=== PATIENT | male | born 1965 | race Caucasian/White ===

== ENCOUNTER 2017-09-26 22:34 | Observation (INO) | payer OTHER ==
[~2017-09-26] VITALS: Ht 170.2 cm; Wt 78.0 kg
[~2017-09-26 22:34] MED LIST: AMLO5 PO; ASPI81CH PO; ATEN25 PO; Augmentin 500-1 EACH PO; BYSTOLIC PO; ERYT.5TO OD; ERYT.5TO RIGHTEYE; FISH1000 PO; HYDACE5 PO; LISI20 PO; LOSA50 PO; LOVA20 PO; LOVA40 PO; MECL25 PO; NAPR500 PO; OXYACE5T PO; PROM25 PO; Percocet 10-321 EACH PO; RXTRAM50 PO; TRAM50 PO; Vibramycin100 MG PO; Zofran Odt4 MG SL
[2017-09-26] MEDS ORDERED: LISI20 PO (22:51)
[2017-09-26] MEDS ORDERED: ASPI325 PO (22:51)
[2017-09-26 23:22] LABS: BASOPHILS ABSOLUTE AUTO 0.05 K/mm3 (0.00-0.23); BASOPHILS PERCENT AUTO 1 % (0-2); EOSINOPHILS ABSOLUTE AUTO 0.06 K/mm3 (0.00-0.68); EOSINOPHILS PERCENT AUTO 1 % (0-6); Hemoglobin 15.3 g/dL (13.5-17.5); IMMATURE GRAN ABSOLUTE AUTO 0.04 K/mm3 (0.00-0.10); IMMATURE GRAN PERCENT AUTO 1 % (0-1); LYMPHOCYTES ABSOLUTE AUTO 2.24 K/mm3 (0.84-5.20); LYMPHOCYTES PERCENT AUTO 28 % (21-46); MONOCYTES ABSOLUTE AUTO 0.62 K/mm3 (0.16-1.47); MONOCYTES PERCENT AUTO 8 % (4-13); Mean Corpuscular HGB Conc 33.3 g/dL (31.5-36.5); Mean Corpuscular Volume 87 fL (80-100); Mean Platelet Volume 10.4 fL (9.1-12.4); NEUTROPHILS ABSOLUTE AUTO 5.05 K/mm3 (1.96-9.15); NEUTROPHILS PERCENT AUTO 63 % (41-73); Platelet Count 262 K/mm3 (150-400); RDW Coefficient Variation 13.1 % (11.7-14.2); RDW Standard Deviation 41.6 fL (35.1-46.3); Red Blood Cell Count 5.28 M/mm3 (4.30-5.90); White Blood Cell Count 8.06 K/mm3 (4.00-11.30)
[2017-09-26 23:40] LABS: Alanine Aminotransfer (ALT/SGP 32 U/L (12-78); Albumin, Blood 3.5 g/dL (3.4-5.0); Albumin/Globulin Ratio 0.8 (0.8-1.8); Alk Phos 97 U/L (50-136); Anion Gap 9 mmol/L (6-16); Aspartate Aminotrans (AST/SGOT 28 U/L (12-37); Bilirubin, Total 0.2 mg/dL (0.1-1.0); Blood Urea Nitrogen 20 mg/dL (8-24); CO2, Blood 24 mmol/L (21-32); Calcium, Blood 8.7 mg/dL (8.5-10.1); Chloride, Blood 106 mmol/L (98-108); Creatinine, Blood 1.11 mg/dL (0.60-1.20); Globulin, Blood 4.3 g/dL (2.2-4.0); Glomerular Filtration Rate >60 (60-); Glucose, Blood 105 mg/dL (70-99); Sodium, Blood 139 mmol/L (136-145); Total Protein, Blood 7.8 g/dL (6.4-8.2)
[2017-09-28 05:21] LABS: BASOPHILS ABSOLUTE AUTO 0.05 K/mm3 (0.00-0.23); BASOPHILS PERCENT AUTO 1 % (0-2); EOSINOPHILS PERCENT AUTO 1 % (0-6); Hematocrit 49.6 % (37.0-53.0); Hemoglobin 16.9 g/dL (13.5-17.5); IMMATURE GRAN ABSOLUTE AUTO 0.02 K/mm3 (0.00-0.10); IMMATURE GRAN PERCENT AUTO 0 % (0-1); LYMPHOCYTES ABSOLUTE AUTO 1.87 K/mm3 (0.84-5.20); LYMPHOCYTES PERCENT AUTO 25 % (21-46); MONOCYTES ABSOLUTE AUTO 0.59 K/mm3 (0.16-1.47); MONOCYTES PERCENT AUTO 8 % (4-13); Mean Corpuscular HGB 29.6 pg (26.0-34.0); Mean Corpuscular HGB Conc 34.1 g/dL (31.5-36.5); Mean Corpuscular Volume 87 fL (80-100); Mean Platelet Volume 10.9 fL (9.1-12.4); NEUTROPHILS ABSOLUTE AUTO 4.98 K/mm3 (1.96-9.15); NEUTROPHILS PERCENT AUTO 65 % (41-73); Platelet Count 276 K/mm3 (150-400); RDW Coefficient Variation 13.2 % (11.7-14.2); RDW Standard Deviation 41.7 fL (35.1-46.3); Red Blood Cell Count 5.71 M/mm3 (4.30-5.90); White Blood Cell Count 7.61 K/mm3 (4.00-11.30)
[2017-09-28 05:59] LABS: Alanine Aminotransfer (ALT/SGP 37 U/L (12-78); Albumin, Blood 3.4 g/dL (3.4-5.0); Albumin/Globulin Ratio 0.7 (0.8-1.8); Alk Phos 100 U/L (50-136); Anion Gap 8 mmol/L (6-16); Aspartate Aminotrans (AST/SGOT 27 U/L (12-37); Bilirubin, Total 0.4 mg/dL (0.1-1.0); Blood Urea Nitrogen 20 mg/dL (8-24); Bun/Creatinine Ratio 20.5 (12.0-20.0); CO2, Blood 24 mmol/L (21-32); Calcium, Blood 9.1 mg/dL (8.5-10.1); Chloride, Blood 103 mmol/L (98-108); Creatinine, Blood 0.98 mg/dL (0.60-1.20); Globulin, Blood 4.8 g/dL (2.2-4.0); Glomerular Filtration Rate >60 (60-); Glucose, Blood 111 mg/dL (70-99); Sodium, Blood 135 mmol/L (136-145); Total Protein, Blood 8.2 g/dL (6.4-8.2)
[2017-09-29 05:49] LABS: Anion Gap 7 mmol/L (6-16); Blood Urea Nitrogen 26 mg/dL (8-24); CO2, Blood 23 mmol/L (21-32); Calcium, Blood 9.4 mg/dL (8.5-10.1); Chloride, Blood 106 mmol/L (98-108); Creatinine, Blood 1.04 mg/dL (0.60-1.20); Glomerular Filtration Rate >60 (60-); Glucose, Blood 108 mg/dL (70-99); Potassium, Blood 4.1 mmol/L (3.5-5.5); Sodium, Blood 136 mmol/L (136-145)
[2017-09-29] MEDS ORDERED: ASPI81CH PO (13:30)
[2017-09-29] MEDS ORDERED: ATOR40TA PO (13:30)
[2017-09-29] MEDS ORDERED: CLOP75 PO (13:31)
[2017-09-29] MEDS ORDERED: CLON.1 PO (13:31)
[2017-09-29] MEDS ORDERED: LOSA50 PO (13:32)
== END 2017-09-29 13:50 | disposition home or self-care (01) ==
LOC: ER 22:34 → ICUW 22:35 → MEDS 09-28 14:21
PROVIDERS: Emergency Medicine; Internal Medicine
DX: G45.9 Transient cerebral ischemic attack, unspecified (principal); I16.1 Hypertensive emergency; I10 Essential (primary) hypertension; F17.220 Nicotine dependence, chewing tobacco, uncomplicated; Z86.19 Personal history of other infectious and parasitic diseases; Z88.8 Allergy status to other drugs, medicaments and biological substances; Z79.82 Long term (current) use of aspirin; Z79.899 Other long term (current) drug therapy; Z86.73 Personal history of transient ischemic attack (TIA), and cerebral infarction without residual deficits; Z98.890 Other specified postprocedural states; Z23 Encounter for immunization
CPT/HCPCS: 36415; 70450; 70551; 80048; 80053; 82947; 84443; 85025; 87081; 92523; 93306; 93880; 96365; 96372; 96375; 96376; 97161; 97166; 97530; 99285; G0008; G0378; G8978; G8979; G8980; G8987; G8988; G8999; G9158; G9186; J0360; J1170; J1650; J2405; J3010; J7050; Q2038

== ENCOUNTER 2017-10-02 09:36 | Emergency (ER) | payer OTHER ==
[~2017-10-02] VITALS: Ht 170.2 cm; Wt 78.0 kg
[~2017-10-02 09:36] MED LIST changes: +ASPI325 PO; +ATOR40TA PO; +CLON.1 PO; +CLOP75 PO
[2017-10-02 10:37] LABS: BASOPHILS ABSOLUTE AUTO 0.05 K/mm3 (0.00-0.23); BASOPHILS PERCENT AUTO 1 % (0-2); EOSINOPHILS ABSOLUTE AUTO 0.12 K/mm3 (0.00-0.68); EOSINOPHILS PERCENT AUTO 2 % (0-6); Hematocrit 45.2 % (37.0-53.0); Hemoglobin 15.1 g/dL (13.5-17.5); IMMATURE GRAN ABSOLUTE AUTO 0.02 K/mm3 (0.00-0.10); IMMATURE GRAN PERCENT AUTO 0 % (0-1); LYMPHOCYTES ABSOLUTE AUTO 1.65 K/mm3 (0.84-5.20); LYMPHOCYTES PERCENT AUTO 26 % (21-46); MONOCYTES ABSOLUTE AUTO 0.58 K/mm3 (0.16-1.47); MONOCYTES PERCENT AUTO 9 % (4-13); Mean Corpuscular HGB 29.2 pg (26.0-34.0); Mean Corpuscular HGB Conc 33.4 g/dL (31.5-36.5); Mean Corpuscular Volume 87 fL (80-100); Mean Platelet Volume 10.4 fL (9.1-12.4); NEUTROPHILS ABSOLUTE AUTO 3.99 K/mm3 (1.96-9.15); NEUTROPHILS PERCENT AUTO 62 % (41-73); Platelet Count 238 K/mm3 (150-400); RDW Coefficient Variation 12.9 % (11.7-14.2); RDW Standard Deviation 41.1 fL (35.1-46.3); Red Blood Cell Count 5.18 M/mm3 (4.30-5.90); White Blood Cell Count 6.41 K/mm3 (4.00-11.30)
[2017-10-02 10:53] LABS: Alanine Aminotransfer (ALT/SGP 37 U/L (12-78); Albumin, Blood 3.5 g/dL (3.4-5.0); Albumin/Globulin Ratio 0.8 (0.8-1.8); Alk Phos 97 U/L (50-136); Anion Gap 8 mmol/L (6-16); Aspartate Aminotrans (AST/SGOT 29 U/L (12-37); Bilirubin, Total 0.4 mg/dL (0.1-1.0); Blood Urea Nitrogen 21 mg/dL (8-24); CO2, Blood 25 mmol/L (21-32); Calcium, Blood 8.5 mg/dL (8.5-10.1); Chloride, Blood 106 mmol/L (98-108); Creatinine, Blood 0.96 mg/dL (0.60-1.20); Globulin, Blood 4.2 g/dL (2.2-4.0); Glomerular Filtration Rate >60 (60-); Glucose, Blood 104 mg/dL (70-99); Sodium, Blood 139 mmol/L (136-145); Total Protein, Blood 7.7 g/dL (6.4-8.2)
== END 2017-10-02 12:10 | disposition home or self-care (01) ==
LOC: ER 09:36
PROVIDERS: Emergency Medicine
DX: R51 Headache (principal); I10 Essential (primary) hypertension; F17.220 Nicotine dependence, chewing tobacco, uncomplicated; Z88.1 Allergy status to other antibiotic agents; Z79.82 Long term (current) use of aspirin; Z79.899 Other long term (current) drug therapy; Z79.02 Long term (current) use of antithrombotics/antiplatelets; Z87.442 Personal history of urinary calculi
CPT/HCPCS: 36415; 70450; 80053; 85025; 85730; 93005; 93010; 96374; 96375; 99284; J1200; J2765

== ENCOUNTER 2017-10-14 13:03 | Emergency (ER) | payer OTHER ==
[~2017-10-14] VITALS: Ht 170.2 cm; Wt 81.7 kg
== END 2017-10-14 13:57 | disposition home or self-care (01) ==
LOC: ER 13:03
DX: T15.01XA Foreign body in cornea, right eye, initial encounter (principal); I10 Essential (primary) hypertension; E78.00 Pure hypercholesterolemia, unspecified; I25.10 Atherosclerotic heart disease of native coronary artery without angina pectoris; Z86.73 Personal history of transient ischemic attack (TIA), and cerebral infarction without residual deficits; Z88.1 Allergy status to other antibiotic agents; Z79.82 Long term (current) use of aspirin; Z79.899 Other long term (current) drug therapy; W45.8XXA Other foreign body or object entering through skin, initial encounter
CPT/HCPCS: 90471; 90714; 99283

== ENCOUNTER 2018-11-04 17:32 | Emergency (ER) | payer OTHER ==
[~2018-11-04] VITALS: Ht 170.2 cm; Wt 81.7 kg
[2018-11-04] MEDS ORDERED: CLON.3 PO (18:48)
[2018-11-04] MEDS ORDERED: NEBI5 PO (18:48)
== END 2018-11-04 18:49 | disposition home or self-care (01) ==
LOC: ER 17:32
DX: S61.412A Laceration without foreign body of left hand, initial encounter (principal); I10 Essential (primary) hypertension; F17.210 Nicotine dependence, cigarettes, uncomplicated; Z88.8 Allergy status to other drugs, medicaments and biological substances; Z79.82 Long term (current) use of aspirin; Z79.899 Other long term (current) drug therapy; Z87.442 Personal history of urinary calculi; W26.0XXA Contact with knife, initial encounter

== ENCOUNTER 2018-11-11 19:30 | Emergency (ER) | payer OTHER ==
[~2018-11-11] VITALS: Ht 170.2 cm; Wt 81.7 kg
[~2018-11-11 19:30] MED LIST changes: +CLON.3 PO; +NEBI5 PO
[2018-11-11] MEDS ORDERED: PANT20 PO (20:14)
[2018-11-11 20:19] LABS: BASOPHILS ABSOLUTE AUTO 0.03 K/mm3 (0.00-0.23); BASOPHILS PERCENT AUTO 0 % (0-2); EOSINOPHILS ABSOLUTE AUTO 0.09 K/mm3 (0.00-0.68); EOSINOPHILS PERCENT AUTO 1 % (0-6); Hematocrit 41.3 % (37.0-53.0); Hemoglobin 14.2 g/dL (13.5-17.5); IMMATURE GRAN ABSOLUTE AUTO 0.04 K/mm3 (0.00-0.10); IMMATURE GRAN PERCENT AUTO 1 % (0-1); LYMPHOCYTES ABSOLUTE AUTO 1.93 K/mm3 (0.84-5.20); LYMPHOCYTES PERCENT AUTO 27 % (21-46); MONOCYTES ABSOLUTE AUTO 0.47 K/mm3 (0.16-1.47); MONOCYTES PERCENT AUTO 7 % (4-13); Mean Corpuscular HGB 31.1 pg (26.0-34.0); Mean Corpuscular HGB Conc 34.4 g/dL (31.5-36.5); Mean Corpuscular Volume 90 fL (80-100); Mean Platelet Volume 10.6 fL (9.1-12.4); NEUTROPHILS PERCENT AUTO 64 % (41-73); Platelet Count 211 K/mm3 (150-400); RDW Coefficient Variation 12.7 % (11.7-14.2); RDW Standard Deviation 41.6 fL (35.1-46.3); Red Blood Cell Count 4.57 M/mm3 (4.30-5.90); White Blood Cell Count 7.06 K/mm3 (4.00-11.30)
[2018-11-11 20:35] LABS: Alanine Aminotransfer (ALT/SGP 39 U/L (12-78); Albumin, Blood 3.6 g/dL (3.4-5.0); Alk Phos 74 U/L (50-136); Anion Gap 7 mmol/L (6-16); Aspartate Aminotrans (AST/SGOT 41 U/L (12-37); Bilirubin, Total 0.3 mg/dL (0.1-1.0); Blood Urea Nitrogen 17 mg/dL (8-24); Bun/Creatinine Ratio 13.4 (12.0-20.0); CO2, Blood 29 mmol/L (21-32); Calcium, Blood 9.3 mg/dL (8.5-10.1); Chloride, Blood 107 mmol/L (98-108); Creatinine, Blood 1.27 mg/dL (0.60-1.20); Globulin, Blood 3.5 g/dL (2.2-4.0); Glomerular Filtration Rate >60 (60-); Glucose, Blood 105 mg/dL (70-99); Potassium, Blood 4.2 mmol/L (3.5-5.5); Sodium, Blood 143 mmol/L (136-145); Total Protein, Blood 7.1 g/dL (6.4-8.2)
[2018-11-11 20:48] LABS: International Normalized Ratio 0.99; Prothrombin Time Results 10.5 Sec (9.7-11.5)
== END 2018-11-12 00:03 | disposition home or self-care (01) ==
LOC: ER 19:30
PROVIDERS: Emergency Medicine
DX: R20.2 Paresthesia of skin (principal); I10 Essential (primary) hypertension; Z86.73 Personal history of transient ischemic attack (TIA), and cerebral infarction without residual deficits; Z88.1 Allergy status to other antibiotic agents; Z79.899 Other long term (current) drug therapy; F17.210 Nicotine dependence, cigarettes, uncomplicated
CPT/HCPCS: 36415; 70450; 70496; 70498; 80053; 82947; 85025; 85610; 85730; 93005; 93010; 99284-25; Q9967

== ENCOUNTER 2019-10-24 18:01 | Emergency (ER) | payer BC ==
[~2019-10-24] VITALS: Ht 172.7 cm; Wt 77.1 kg
[~2019-10-24 18:01] MED LIST changes: +PANT20 PO
[2019-10-24 18:18] LABS: BASOPHILS ABSOLUTE AUTO 0.04 K/mm3 (0.00-0.23); BASOPHILS PERCENT AUTO 0 % (0-2); EOSINOPHILS ABSOLUTE AUTO 0.12 K/mm3 (0.00-0.68); EOSINOPHILS PERCENT AUTO 1 % (0-6); Hematocrit 39.6 % (37.0-53.0); Hemoglobin 12.9 g/dL (13.5-17.5); IMMATURE GRAN ABSOLUTE AUTO 0.06 K/mm3 (0.00-0.10); IMMATURE GRAN PERCENT AUTO 1 % (0-1); LYMPHOCYTES ABSOLUTE AUTO 2.68 K/mm3 (0.84-5.20); LYMPHOCYTES PERCENT AUTO 28 % (21-46); MONOCYTES PERCENT AUTO 7 % (4-13); Mean Corpuscular HGB 29.9 pg (26.0-34.0); Mean Corpuscular HGB Conc 32.6 g/dL (31.5-36.5); Mean Corpuscular Volume 92 fL (80-100); NEUTROPHILS ABSOLUTE AUTO 5.84 K/mm3 (1.96-9.15); NEUTROPHILS PERCENT AUTO 62 % (41-73); Platelet Count 248 K/mm3 (150-400); RDW Coefficient Variation 12.6 % (11.7-14.2); RDW Standard Deviation 42.6 fL (35.1-46.3); Red Blood Cell Count 4.31 M/mm3 (4.30-5.90); White Blood Cell Count 9.44 K/mm3 (4.00-11.30)
[2019-10-24 18:47] LABS: Salicylate <1.7 mg/dL (2.8-20.0); Troponin I <0.015 ng/mL (0.000-0.040)
[2019-10-24 18:49] LABS: Alanine Aminotransfer (ALT/SGP 20 U/L (12-78); Albumin/Globulin Ratio 0.7 (0.8-1.8); Alk Phos 71 U/L (50-136); Anion Gap 8 mmol/L (6-16); Aspartate Aminotrans (AST/SGOT 21 U/L (12-37); Bilirubin, Total 0.2 mg/dL (0.1-1.0); Blood Urea Nitrogen 24 mg/dL (8-24); Bun/Creatinine Ratio 21.6 (12.0-20.0); CO2, Blood 23 mmol/L (21-32); Calcium, Blood 8.3 mg/dL (8.5-10.1); Chloride, Blood 106 mmol/L (98-108); Creatinine, Blood 1.11 mg/dL (0.60-1.20); Globulin, Blood 4.1 g/dL (2.2-4.0); Glomerular Filtration Rate >60 (60-); Glucose, Blood 131 mg/dL (70-99); Potassium, Blood 3.2 mmol/L (3.5-5.5); Sodium, Blood 137 mmol/L (136-145); Total Protein, Blood 7.1 g/dL (6.4-8.2)
[2019-10-24 19:00] LABS: Acetaminophen, Random <2.0 ug/mL (10.0-30.0)
[2019-10-24 20:17] LABS: U Amphetamine Screen DETECTED; U Barbituate Screen Not Detected; U Benzodiazapine Screen Not Detected; U Buprenorphine Screen Not Detected; U Cannabinoids Screen Not Detected; U Cocaine Screen Not Detected; U Methadone Screen Not Detected; U Methamphetamine Screen Not Detected; U Opiates Screen Not Detected; U Oxycodone Screen Not Detected; U Phencyclidine Screen Not Detected; U Propoxyphene Screen Not Detected
== END 2019-10-24 20:31 | disposition home or self-care (01) ==
LOC: ER 18:01
PROVIDERS: Emergency Medicine
DX: R55 Syncope and collapse (principal); F10.129 Alcohol abuse with intoxication, unspecified; F15.90 Other stimulant use, unspecified, uncomplicated; I10 Essential (primary) hypertension; F17.200 Nicotine dependence, unspecified, uncomplicated; Z88.1 Allergy status to other antibiotic agents; Z79.899 Other long term (current) drug therapy; Z86.73 Personal history of transient ischemic attack (TIA), and cerebral infarction without residual deficits
CPT/HCPCS: 70450; 80053; 82947; 84484; 85025; 93005; 93010; 96360; 99285-25; G0480; J7030

== ENCOUNTER 2019-11-22 07:23 | Emergency (ER) | payer BC, OTHER ==
[~2019-11-22] VITALS: Ht 170.2 cm; Wt 81.7 kg
[2019-11-22] MEDS ORDERED: PANTOPRAZOLE SO40 M2 PO (07:53)
== END 2019-11-22 08:54 | disposition home or self-care (01) ==
LOC: ER 07:23
DX: J06.9 Acute upper respiratory infection, unspecified (principal); I10 Essential (primary) hypertension; F17.210 Nicotine dependence, cigarettes, uncomplicated; F17.220 Nicotine dependence, chewing tobacco, uncomplicated; Z88.1 Allergy status to other antibiotic agents; Z79.899 Other long term (current) drug therapy; Z79.02 Long term (current) use of antithrombotics/antiplatelets; Z86.73 Personal history of transient ischemic attack (TIA), and cerebral infarction without residual deficits
CPT/HCPCS: 71045; 99283-25; J1100

== ENCOUNTER 2021-06-10 08:10 | Day surgery (SDC) | payer BC ==
[~2021-06-10] VITALS: Ht 170.2 cm; Wt 85.3 kg
[~2021-06-10 08:10] MED LIST changes: +PANTOPRAZOLE SO40 M2 PO
[2021-06-10] MEDS ORDERED: METO25ER (08:44)
== END 2021-06-10 10:34 | disposition home or self-care (01) ==
LOC: ORSCSDS 08:10
PROVIDERS: Internal Medicine Gastroenterology
PROC: 0DB98ZX Excision of Duodenum, Via Natural or Artificial Opening Endoscopic, Diagnostic (ICD-10-PCS; principal; 2021-06-10 10:00)
PROC: 0DB78ZX Excision of Stomach, Pylorus, Via Natural or Artificial Opening Endoscopic, Diagnostic (ICD-10-PCS; principal; 2021-06-10 10:00)
DX: R10.11 Right upper quadrant pain (principal); K21.9 Gastro-esophageal reflux disease without esophagitis; F17.210 Nicotine dependence, cigarettes, uncomplicated; I10 Essential (primary) hypertension; B19.20 Unspecified viral hepatitis C without hepatic coma; K44.9 Diaphragmatic hernia without obstruction or gangrene; Z79.899 Other long term (current) drug therapy
CPT/HCPCS: 88305; J2704; J7120

== ENCOUNTER 2021-09-01 08:26 | Day surgery (SDC) | payer BC ==
[~2021-09-01] VITALS: Ht 170.2 cm; Wt 83.5 kg
[~2021-09-01 08:26] MED LIST changes: +Aspir 8181 MG PO; +Isosorbide Mono30 MG PO; +METO25ER PO; +NITR.4SL SL; +PANTOPRAZOLE SO20 M1 PO
--- NOTE | 2021-09-01 09:06 | NUR ---
History, Chart, Medications and Allergies reviewed before start of procedure. Patient confirms NPO status and agrees with scheduled surgery. Reports taking all of colon prep with clear results. Ride home arranged with his significant other, Chuyita.
--- NOTE | 2021-09-01 10:28 | NUR ---
09/01/21 1028 Chelsey Holman HISTORY,CHART, MEDICATIONS AND ALLERGIES REVIEWED BEFORE START OF PROCEDURE. PATIENT CONFIRMS NPO STATUS AND AGREES WITH SCHEDULED PROCEDURE. 3-LEAD EKG REVIEWED WITH PHYSICIAN PRIOR TO START OF PROCEDURE. MONITOR INTACT WITH CONTINUOUS PULSE OXIMETRY AND INTERMITTENT BP. SUPPLEMENTAL O2 TO BE TITRATED THROUGHOUT PROCEDURE TO MAINTAIN O2 SATURATION ABOVE 90%. PATIENT DETERMINED TO BE ASA APPROPRIATE FOR MODERATE SEDATION PRIOR TO START OF PROCEDURE BY DR. RUIZ.
--- NOTE | 2021-09-01 11:54 | NUR ---
PT SITTING UP EATING CRACKERS, PUDDING AND DRINKING COFFEE.
--- NOTE | 2021-09-01 11:55 | NUR ---
DR. RUIZ AT BEDSIDE CONSULTING WITH PT.
--- NOTE | 2021-09-01 12:22 | NUR ---
Patient up to Ambulate independently. Gait steady. Discharge instructions reviewed with patient. Patient verbalizes understanding. Copy given to patient to take home. Discharged via wheelchair to private car for ride home.
== END 2021-09-01 22:40 | disposition home or self-care (01) ==
LOC: ORSCMMR 08:26 → ORSCSDS 09:45 → ORD 09:45 → ORSCMMR 09:45
PROVIDERS: Internal Medicine Gastroenterology
PROC: 0DBP8ZX Excision of Rectum, Via Natural or Artificial Opening Endoscopic, Diagnostic (ICD-10-PCS; principal; 2021-09-01 09:45)
PROC: 0DBM8ZX Excision of Descending Colon, Via Natural or Artificial Opening Endoscopic, Diagnostic (ICD-10-PCS; principal; 2021-09-01 09:45)
PROC: 0DBN8ZX Excision of Sigmoid Colon, Via Natural or Artificial Opening Endoscopic, Diagnostic (ICD-10-PCS; principal; 2021-09-01 09:45)
PROC: 0DBL8ZX Excision of Transverse Colon, Via Natural or Artificial Opening Endoscopic, Diagnostic (ICD-10-PCS; principal; 2021-09-01 09:45)
DX: R10.9 Unspecified abdominal pain (principal); D12.3 Benign neoplasm of transverse colon; D12.4 Benign neoplasm of descending colon; D12.5 Benign neoplasm of sigmoid colon; D12.8 Benign neoplasm of rectum; K57.30 Diverticulosis of large intestine without perforation or abscess without bleeding; K64.4 Residual hemorrhoidal skin tags; K62.5 Hemorrhage of anus and rectum; K21.9 Gastro-esophageal reflux disease without esophagitis; B18.2 Chronic viral hepatitis C; Z86.73 Personal history of transient ischemic attack (TIA), and cerebral infarction without residual deficits; Z79.01 Long term (current) use of anticoagulants; Z79.82 Long term (current) use of aspirin; Z79.899 Other long term (current) drug therapy; Z87.891 Personal history of nicotine dependence
CPT/HCPCS: 88305; J2250; J3010; J7120

== ENCOUNTER 2022-10-18 11:48 | Inpatient (IN) | payer BC ==
[~2022-10-18] VITALS: Ht 167.6 cm; Wt 87.0 kg
[2022-10-18 12:58] LABS: BASOPHILS ABSOLUTE AUTO 0.07 K/mm3 (0.00-0.23); BASOPHILS PERCENT AUTO 0 % (0-2); EOSINOPHILS ABSOLUTE AUTO 0.04 K/mm3 (0.00-0.68); EOSINOPHILS PERCENT AUTO 0 % (0-6); Hematocrit 46.5 % (37.0-53.0); Hemoglobin 15.2 g/dL (13.5-17.5); IMMATURE GRAN ABSOLUTE AUTO 0.12 K/mm3 (0.00-0.10); IMMATURE GRAN PERCENT AUTO 1 % (0-1); LYMPHOCYTES ABSOLUTE AUTO 1.32 K/mm3 (0.84-5.20); LYMPHOCYTES PERCENT AUTO 7 % (21-46); MONOCYTES ABSOLUTE AUTO 1.23 K/mm3 (0.16-1.47); MONOCYTES PERCENT AUTO 6 % (4-13); Mean Corpuscular HGB 30.8 pg (26.0-34.0); Mean Corpuscular HGB Conc 32.7 g/dL (31.5-36.5); Mean Corpuscular Volume 94 fL (80-100); Mean Platelet Volume 11.4 fL (9.1-12.4); NEUTROPHILS ABSOLUTE AUTO 16.34 K/mm3 (1.96-9.15); NEUTROPHILS PERCENT AUTO 86 % (41-73); Platelet Count 187 K/mm3 (150-400); RDW Coefficient Variation 14.1 % (11.7-14.2); Red Blood Cell Count 4.93 M/mm3 (4.30-5.90); White Blood Cell Count 19.12 K/mm3 (4.00-11.30)
[2022-10-18 13:11] LABS: Albumin, Blood 3.5 g/dL (3.4-5.0); Albumin/Globulin Ratio 0.8 (0.8-1.8); Bilirubin, Total 0.5 mg/dL (0.1-1.0); Bun/Creatinine Ratio 15.7 (12.0-20.0); Calcium, Blood 9.3 mg/dL (8.5-10.1); Creatinine, Blood 1.02 mg/dL (0.60-1.20); Globulin, Blood 4.4 g/dL (2.2-4.0); Potassium, Blood 3.4 mmol/L (3.5-5.5); Total Protein, Blood 7.9 g/dL (6.4-8.2)
[2022-10-18] MEDS ORDERED: BUMETANIDE2 M6 PO (15:23)
[2022-10-18] MEDS ORDERED: KLOR-CON 1010 ME9 PO (15:23)
[2022-10-18] MEDS ORDERED: Imdur-ER60 MG PO (15:24)
--- NOTE | 2022-10-18 17:48 | NUR ---
SHIFT SUMMARY PT ARRIVED FROM THE ED THIS AFTERNOON WITH CELLULITIS OF THE R ELBOW/ARM AREA. HE IS AOX4 AND INDEPENDENT IN THE ROOM. HE CAN MAKE HIS NEEDS KNOWN. HE HAD NOT TAKEN HIS HOME BP MEDS TODAY, DR. MEJIA STARTED THEM AND THEY WERE ADMINISTERED SHORTLY AFTER HIS ARRIVAL TO THE FLOOR. HE WAS HYPERTENSIVE UPON ARRIVAL. ALL ADMIT DOCUMENTATION WAS COMPLETED. WILL REPORT TO ONCOMING NURSE.
--- NOTE | 2022-10-19 04:16 | NUR ---
SHIFT SUMMARY PT WAS SLEEPING VERY SOUNDLY AT BEGINNING OF SHIFT, BUT AWOKE TO VOICE AND TOUCH. A&OX4. INDEPENDENT IN ROOM. VANCOMYCIN FOR DX OF CELLULITIS TO R ARM GIVEN PER EMAR. PT HAS BEEN SLEEPING IN BETWEEN STAFF VISITS TO ROOM. MEDICATED FOR PAIN PER EMAR ONCE SO FAR THIS SHIFT. ABLE TO MAKE NEEDS KNOWN. CALL LIGHT IN REACH. WILL CONTINUE TO MONITOR AND PROVIDE CARE T/O SHIFT.
[2022-10-19 05:12] LABS: BASOPHILS ABSOLUTE AUTO 0.05 K/mm3 (0.00-0.23); BASOPHILS PERCENT AUTO 0 % (0-2); EOSINOPHILS ABSOLUTE AUTO 0.09 K/mm3 (0.00-0.68); EOSINOPHILS PERCENT AUTO 1 % (0-6); Hematocrit 41.7 % (37.0-53.0); Hemoglobin 13.7 g/dL (13.5-17.5); IMMATURE GRAN ABSOLUTE AUTO 0.14 K/mm3 (0.00-0.10); IMMATURE GRAN PERCENT AUTO 1 % (0-1); LYMPHOCYTES ABSOLUTE AUTO 1.82 K/mm3 (0.84-5.20); LYMPHOCYTES PERCENT AUTO 10 % (21-46); MONOCYTES ABSOLUTE AUTO 1.18 K/mm3 (0.16-1.47); MONOCYTES PERCENT AUTO 7 % (4-13); Mean Corpuscular HGB 30.7 pg (26.0-34.0); Mean Corpuscular HGB Conc 32.9 g/dL (31.5-36.5); Mean Corpuscular Volume 94 fL (80-100); NEUTROPHILS ABSOLUTE AUTO 14.14 K/mm3 (1.96-9.15); NEUTROPHILS PERCENT AUTO 81 % (41-73); Platelet Count 182 K/mm3 (150-400); RDW Standard Deviation 47.8 fL (35.1-46.3); Red Blood Cell Count 4.46 M/mm3 (4.30-5.90); White Blood Cell Count 17.42 K/mm3 (4.00-11.30)
[2022-10-19 06:29] LABS: Albumin, Blood 2.8 g/dL (3.4-5.0); Albumin/Globulin Ratio 0.7 (0.8-1.8); Bilirubin, Total 0.4 mg/dL (0.1-1.0); Bun/Creatinine Ratio 18.3 (12.0-20.0); Calcium, Blood 8.5 mg/dL (8.5-10.1); Creatinine, Blood 1.04 mg/dL (0.60-1.20); Globulin, Blood 3.9 g/dL (2.2-4.0); Potassium, Blood 3.5 mmol/L (3.5-5.5); Total Protein, Blood 6.7 g/dL (6.4-8.2)
--- NOTE | 2022-10-19 10:39 | NUR ---
ct called, need with contrast for this pic. verified with dr rosario andrea. she agrees okay
--- NOTE | 2022-10-19 16:57 | NUR ---
pt pleasant today. no c/o [place] for me. continues on abx. did have c/t with contrast today of arm. dr started on n/s to flush kidneys. no new concerns noted. pending results of ct. pt continues to be independant in room. bed in low position, call lite in reach, calls aprop
[2022-10-20 03:21] LABS: BASOPHILS ABSOLUTE AUTO 0.06 K/mm3 (0.00-0.23); BASOPHILS PERCENT AUTO 0 % (0-2); EOSINOPHILS ABSOLUTE AUTO 0.16 K/mm3 (0.00-0.68); EOSINOPHILS PERCENT AUTO 1 % (0-6); Hematocrit 39.3 % (37.0-53.0); Hemoglobin 13.2 g/dL (13.5-17.5); IMMATURE GRAN ABSOLUTE AUTO 0.16 K/mm3 (0.00-0.10); IMMATURE GRAN PERCENT AUTO 1 % (0-1); LYMPHOCYTES ABSOLUTE AUTO 1.79 K/mm3 (0.84-5.20); LYMPHOCYTES PERCENT AUTO 11 % (21-46); MONOCYTES ABSOLUTE AUTO 1.14 K/mm3 (0.16-1.47); MONOCYTES PERCENT AUTO 7 % (4-13); Mean Corpuscular HGB 30.9 pg (26.0-34.0); Mean Corpuscular HGB Conc 33.6 g/dL (31.5-36.5); Mean Corpuscular Volume 92 fL (80-100); Mean Platelet Volume 11.1 fL (9.1-12.4); NEUTROPHILS ABSOLUTE AUTO 13.15 K/mm3 (1.96-9.15); NEUTROPHILS PERCENT AUTO 80 % (41-73); Platelet Count 186 K/mm3 (150-400); RDW Coefficient Variation 13.7 % (11.7-14.2); RDW Standard Deviation 46.7 fL (35.1-46.3); Red Blood Cell Count 4.27 M/mm3 (4.30-5.90); White Blood Cell Count 16.46 K/mm3 (4.00-11.30)
[2022-10-20 03:52] LABS: Vancomycin, Trough 9.9 ug/mL (5.0-10.0)
[2022-10-20 04:04] LABS: Bun/Creatinine Ratio 21.6 (12.0-20.0); Calcium, Blood 9.1 mg/dL (8.5-10.1); Creatinine, Blood 1.02 mg/dL (0.60-1.20); Potassium, Blood 3.4 mmol/L (3.5-5.5)
--- NOTE | 2022-10-20 18:03 | NUR ---
SHIFT SUMMARY NO ACUTE CHANGES DURING SHIFT. PT ALERT AND ORIENTED, CALLS APPROPRIATELY, VERY PLEASANT. PT REMAINS ON RA, INDEPENDENT IN ROOM. FLUIDS INFUSING AT 100ML/HR, IV ABX. NO C/O PAIN. POSSIBLE D/C HOME TOMORROW. WILL CONTINUE TO MONITOR. CALL LIGHT WITHIN REACH.
[2022-10-21 05:00] LABS: BASOPHILS ABSOLUTE AUTO 0.07 K/mm3 (0.00-0.23); BASOPHILS PERCENT AUTO 1 % (0-2); EOSINOPHILS ABSOLUTE AUTO 0.18 K/mm3 (0.00-0.68); EOSINOPHILS PERCENT AUTO 1 % (0-6); Hematocrit 39.1 % (37.0-53.0); Hemoglobin 13.2 g/dL (13.5-17.5); IMMATURE GRAN PERCENT AUTO 1 % (0-1); LYMPHOCYTES ABSOLUTE AUTO 1.95 K/mm3 (0.84-5.20); LYMPHOCYTES PERCENT AUTO 13 % (21-46); MONOCYTES ABSOLUTE AUTO 1.23 K/mm3 (0.16-1.47); MONOCYTES PERCENT AUTO 8 % (4-13); Mean Corpuscular HGB 31.3 pg (26.0-34.0); Mean Corpuscular HGB Conc 33.8 g/dL (31.5-36.5); Mean Corpuscular Volume 93 fL (80-100); Mean Platelet Volume 11.2 fL (9.1-12.4); NEUTROPHILS ABSOLUTE AUTO 11.29 K/mm3 (1.96-9.15); NEUTROPHILS PERCENT AUTO 76 % (41-73); Platelet Count 198 K/mm3 (150-400); RDW Coefficient Variation 13.6 % (11.7-14.2); RDW Standard Deviation 46.2 fL (35.1-46.3); Red Blood Cell Count 4.22 M/mm3 (4.30-5.90); White Blood Cell Count 14.92 K/mm3 (4.00-11.30)
[2022-10-21 05:44] LABS: Bun/Creatinine Ratio 21.4 (12.0-20.0); Calcium, Blood 8.9 mg/dL (8.5-10.1); Creatinine, Blood 0.98 mg/dL (0.60-1.20); Potassium, Blood 3.7 mmol/L (3.5-5.5)
--- NOTE | 2022-10-21 05:46 | NUR ---
SHIFT SUMMARY PT SITTING UP IN BED DURING BEDSIDE REPORT- IV INFUSING IN LEFT UPPER ARM IV - PT REPORTED PAIN IN RIGHT ARM DURING ASSESSEMENT- GAVE NORCO 5/325MG PER PRN ORDER- PT BP 139/110= GAVE CATAPRES WITH HS MEDS-PT INDEPENDENT IN ROOM-call from pharmacist that vanco trough wasn't drawn d/t lab unable to get blood from pt- vanco through rescheduled for afternoon - pt slept t/o night - pt independent in room- bed low position, call light within reach
--- NOTE | 2022-10-21 08:17 | NUR ---
pt sitting on the side of the bed a/ox3, pleasant and cooperative with care, follows commands well, states a bit of discomfort in right arm but declined pain meds, lungs are clear in [place], a bit course in bases, resp even and unlabored, no cough noted, on r/a, hrr, no edema noted, ppp+2, cap refill <3 sec, vs stable, afebrile, iv site is clear and patent, btx4, abd flat soft nontneder, void without diff, skin c/w/d, except right arm is a bit pink, but much improved per report, malik porras, up ad ryan in room, will be discharging to home today, call light in reach.
[2022-10-21] MEDS ORDERED: Tylenol325 MG PO (10:23)
[2022-10-21] MEDS ORDERED: HYDR1TAB94 PO (10:23)
[2022-10-21] MEDS ORDERED: AMOCLA875 PO (10:24)
[2022-10-21] MEDS ORDERED: LACT (10:24)
--- NOTE | 2022-10-21 10:47 | NUR ---
Pt is being discharged to home, faxed new meds to [facility], removed iv intact, went over instructions with him he verbalized understanding, will leave via wheelchair when ride arrives. ru ballesteros in reach.
--- NOTE | 2022-10-21 11:30 | NUR ---
Pt taken to car via wheelchair with injection molder in attendence, he has all his belongings, and script for serina is in his discharge folder.
== END 2022-10-21 16:17 | disposition home or self-care (01) | DRG 603 ==
LOC: ER 11:48 → MEDS 15:18 → ERHOLD 15:18 → MEDS 16:18 → ENPENDDIS 10-21 11:54 → MEDS 10-21 16:17
PROVIDERS: Physician Assistant; ADMIT Internal Medicine
DX: L03.113 Cellulitis of right upper limb (principal); K22.70 Barrett's esophagus without dysplasia; E78.5 Hyperlipidemia, unspecified; I12.9 Hypertensive chronic kidney disease with stage 1 through stage 4 chronic kidney disease, or unspecified chronic kidney disease; N18.2 Chronic kidney disease, stage 2 (mild); B18.2 Chronic viral hepatitis C; K21.9 Gastro-esophageal reflux disease without esophagitis; Z88.1 Allergy status to other antibiotic agents; Z86.73 Personal history of transient ischemic attack (TIA), and cerebral infarction without residual deficits; Z79.899 Other long term (current) drug therapy; Z79.82 Long term (current) use of aspirin; Z79.02 Long term (current) use of antithrombotics/antiplatelets; Z87.442 Personal history of urinary calculi; Z86.14 Personal history of Methicillin resistant Staphylococcus aureus infection; Z98.890 Other specified postprocedural states; Z87.19 Personal history of other diseases of the digestive system; Z87.891 Personal history of nicotine dependence
CPT/HCPCS: 36415; 73201; 80048; 80053; 80202; 85025; 85651; 96374; 96375; 99285-25; A9270; C9113; J0696; J1650; J3370; J7030; J7050; Q9967

== ENCOUNTER 2023-03-06 23:38 | Emergency (ER) | payer BC ==
[~2023-03-06] VITALS: Ht 167.6 cm; Wt 83.9 kg
[~2023-03-06 23:38] MED LIST changes: +AMOCLA875 PO; +BUMETANIDE2 M6 PO; +HYDR1TAB94 PO; +Imdur-ER60 MG PO; +KLOR-CON 1010 ME9 PO; +LACT; +Tylenol325 MG PO
[2023-03-06 23:49] VITALS: BP 191/124
[2023-03-07] MEDS ORDERED: CEPH500 PO (01:16)
== END 2023-03-07 01:25 | disposition home or self-care (01) ==
LOC: ER 23:38
DX: S51.812A Laceration without foreign body of left forearm, initial encounter (principal); I10 Essential (primary) hypertension; B19.20 Unspecified viral hepatitis C without hepatic coma; F17.210 Nicotine dependence, cigarettes, uncomplicated; Z88.3 Allergy status to other anti-infective agents; Z79.82 Long term (current) use of aspirin; Z79.02 Long term (current) use of antithrombotics/antiplatelets; Z79.899 Other long term (current) drug therapy; W31.89XA Contact with other specified machinery, initial encounter
CPT/HCPCS: 12002; 99283-25

== ENCOUNTER 2023-06-01 07:11 | Day surgery (SDC) | payer BC ==
[2023-06-01] VITALS (10 sets, daily range): BP systolic 127–170; BP diastolic 96–136
[~2023-06-01] VITALS: Ht 167.6 cm; Wt 83.9 kg
[~2023-06-01 07:11] MED LIST changes: +CEPH500 PO
[2023-06-01] MEDS ORDERED: ALBU90OI INH (07:56)
[2023-06-01] MEDS ORDERED: Isosorbide Mono30 MG PO (07:57)
[2023-06-01] MEDS ORDERED: BUME1 PO (07:58)
[2023-06-01] MEDS ORDERED: POTCHL20ER PO (07:58)
[2023-06-01] MEDS ORDERED: PANT40 PO (07:58)
--- NOTE | 2023-06-01 10:01 | NUR ---
PATIENT RETURNED FROM THE CATHLAB VIA RECLINER AND PLACED ON THE MONITOR AND SBAR RECEIVED FROM JENNY BURNS. PATIENT IS AWAKE, TR BAND WITH 15 ML OF AIR TO THE RIGHT RADIAL. NO HEMATOMA, NO BLEEDING. CALL LIGHT IN REACH. BREAKFAST TTRAY SERVED, COFFEE SERVED. NO CHEST PAIN AT THIS TIME.
--- NOTE | 2023-06-01 11:13 | NUR ---
RELEASED 3 ML OF AIR FROM THE TR BAND, DUE TO NUMBNESS AND TINGLING IN THE FINGERS PER PATIENT. PLETH WAVEFORM GOOD. SAT 95%
--- NOTE | 2023-06-01 11:43 | NUR ---
BEGAN REMOVING AIR FROM THE TR BAND. PATIENT TOLERATING WELL.
--- NOTE | 2023-06-01 12:14 | NUR ---
DR. GUNN AT THE BEDSIDE AND SPOKE WITH THE PATIENT AT LENGTH ABOUT THE SURGICAL CONSULT. THE PLAN IS FOR THE PATIENT TO BE SEEN NEXT WEEK AT [facility].
--- NOTE | 2023-06-01 12:43 | NUR ---
TR BAND REMOVED, SITE CLEANED, NO BLEEDING, NO HEMATOMA, CLOTH DOT APPLIED. PATIENT OFF MONITOR. PATIENT TO THE RESTROOM, DRESSED AND ALL BELONGINGS GATHERED. REVEIWED DISCHARGE INSTRUCTIONS WITH THE PATIENT AND COPIES GIVEN TO THE PATIENT. PATIENT WHEELCHAIRED TO CAR AND DISCHARGED HOME.
== END 2023-06-01 13:40 | disposition home or self-care (01) ==
LOC: MHTC 07:11
DX: I25.118 Atherosclerotic heart disease of native coronary artery with other forms of angina pectoris (principal); E78.2 Mixed hyperlipidemia; R06.09 Other forms of dyspnea; R94.39 Abnormal result of other cardiovascular function study; M79.602 Pain in left arm; M79.601 Pain in right arm
CPT/HCPCS: 76937; 85347; 93458; 99152; 99153; C1769; C1887; C1894; J1644; J2250; J3010; J7030; J7050; Q9967

== ENCOUNTER 2023-06-21 12:05 | Observation (INO) | payer BC ==
[~2023-06-21] VITALS: Ht 170.2 cm; Wt 81.5 kg
[~2023-06-21 12:05] MED LIST changes: +ALBU90OI INH; +BUME1 PO; -BUMETANIDE2 M6 PO; +PANT40 PO; +POTCHL20ER PO
[2023-06-21 12:31] LABS: BASOPHILS ABSOLUTE AUTO 0.04 K/mm3 (0.00-0.23); BASOPHILS PERCENT AUTO 1 % (0-2); EOSINOPHILS PERCENT AUTO 1 % (0-6); Hematocrit 44.4 % (37.0-53.0); Hemoglobin 15.1 g/dL (13.5-17.5); IMMATURE GRAN ABSOLUTE AUTO 0.04 K/mm3 (0.00-0.10); IMMATURE GRAN PERCENT AUTO 1 % (0-1); LYMPHOCYTES ABSOLUTE AUTO 1.59 K/mm3 (0.84-5.20); LYMPHOCYTES PERCENT AUTO 22 % (21-46); MONOCYTES ABSOLUTE AUTO 0.63 K/mm3 (0.16-1.47); MONOCYTES PERCENT AUTO 9 % (4-13); Mean Corpuscular HGB 31.6 pg (26.0-34.0); Mean Corpuscular Volume 93 fL (80-100); NEUTROPHILS ABSOLUTE AUTO 5.01 K/mm3 (1.96-9.15); NEUTROPHILS PERCENT AUTO 68 % (41-73); RDW Coefficient Variation 13.5 % (11.7-14.2); RDW Standard Deviation 45.8 fL (35.1-46.3); Red Blood Cell Count 4.78 M/mm3 (4.30-5.90); White Blood Cell Count 7.41 K/mm3 (4.00-11.30)
[2023-06-21 12:53] LABS: Albumin, Blood 3.2 g/dL (3.4-5.0); Albumin/Globulin Ratio 0.7 (0.8-1.8); Bilirubin, Total 0.5 mg/dL (0.1-1.0); Bun/Creatinine Ratio 26.5 (12.0-20.0); Calcium, Blood 8.7 mg/dL (8.5-10.1); Creatinine, Blood 0.98 mg/dL (0.60-1.20); Globulin, Blood 4.3 g/dL (2.2-4.0); Potassium, Blood 4.3 mmol/L (3.5-5.5); Total Protein, Blood 7.5 g/dL (6.4-8.2)
[2023-06-21 13:13] LABS: Mean Platelet Volume 10.4 fL (9.1-12.4); Platelet Count 180 K/mm3 (150-400)
[2023-06-21 17:16] VITALS: BP 153/91
[2023-06-21 19:56] VITALS: BP 169/120
[2023-06-21 19:57] VITALS: BP 166/115
[2023-06-21 21:14] VITALS: BP 149/109
[2023-06-21 23:31] VITALS: BP 153/105
--- NOTE | 2023-06-21 23:41 | NUR ---
ASSUMPTION OF CARE: SHERRY IS ALERT AND ORIENTED X 4 CALLS APPROPRIATELY, COOPERATIVE WITH CARE, ON ASSUMPTION EXERTIONAL CHEST PAIN INCREASED AND WAS CONTINUING AFTER REST, BOTH SYS AND DIASTOLIC BLOOD PRESSURE ELEVATED, NECK AND JAW PAIN DEVELOPED, AND 5mg OF MORPHINE GIVEN. PATIENT ENDORSED GREAT RELIEF, AND EVENING CLONIDINE GIVEN WELL. PATIENT HAS BEEN DIURESING WELL WITH TOTAL AT THIS TIME ~ 1200mL FOR THIS RN. STRONG AND STEADY ON FEET, DOES BECOME DYSPNEIC WITH EXERTION. SPO2 SPOT CHECK WILL LAYING ARE 96%. RR CURRENLTY IN THE UPPER TEENS. PATIENT EDUCATED ON SITUATION AND PLAN OF CARE.
--- NOTE | 2023-06-22 01:06 | NUR ---
ASSUMPTION OF CARE RECEIVED REPORT FROM HAILY ALVARADO AND ASSUMED CARE. PT IS RESTING IN BED, NO CONCERNS AT THIS TIME. WILL CONTINUE TO MONITOR AND WILL CONTINUE PLAN OF CARE.
[2023-06-22 01:58] LABS: Bun/Creatinine Ratio 20.8 (12.0-20.0); Calcium, Blood 8.9 mg/dL (8.5-10.1); Creatinine, Blood 1.2 mg/dL (0.60-1.20); Potassium, Blood 3.3 mmol/L (3.5-5.5)
[2023-06-22 02:08] LABS: BASOPHILS ABSOLUTE AUTO 0.04 K/mm3 (0.00-0.23); BASOPHILS PERCENT AUTO 1 % (0-2); EOSINOPHILS ABSOLUTE AUTO 0.11 K/mm3 (0.00-0.68); EOSINOPHILS PERCENT AUTO 2 % (0-6); Hematocrit 44.1 % (37.0-53.0); Hemoglobin 15.2 g/dL (13.5-17.5); IMMATURE GRAN ABSOLUTE AUTO 0.04 K/mm3 (0.00-0.10); IMMATURE GRAN PERCENT AUTO 1 % (0-1); LYMPHOCYTES ABSOLUTE AUTO 1.96 K/mm3 (0.84-5.20); LYMPHOCYTES PERCENT AUTO 28 % (21-46); MONOCYTES ABSOLUTE AUTO 0.54 K/mm3 (0.16-1.47); MONOCYTES PERCENT AUTO 8 % (4-13); Mean Corpuscular HGB 31.9 pg (26.0-34.0); Mean Corpuscular HGB Conc 34.5 g/dL (31.5-36.5); Mean Corpuscular Volume 93 fL (80-100); Mean Platelet Volume 10.7 fL (9.1-12.4); NEUTROPHILS ABSOLUTE AUTO 4.36 K/mm3 (1.96-9.15); NEUTROPHILS PERCENT AUTO 62 % (41-73); Platelet Count 174 K/mm3 (150-400); RDW Coefficient Variation 13.5 % (11.7-14.2); RDW Standard Deviation 45.8 fL (35.1-46.3); Red Blood Cell Count 4.77 M/mm3 (4.30-5.90); White Blood Cell Count 7.05 K/mm3 (4.00-11.30)
--- NOTE | 2023-06-22 06:46 | NUR ---
PT HAS RESTED WELL THROUGH SHIFT, DENIES PAIN AT THIS TIME BUT STATES "I HAD SOME REALLY BAD CRAMPS LAST NIGHT". PLAN IS FOR POSSIBLE COBRA TRANSFER FOR HIGH RISK STENT PLACEMENT, PT IS AWARE AND DENIES QUESTIONS OR CONCERNS FOR PLAN. WILL PROVIDE BEDSIDE REPORT TO ONCOMING RN.
[2023-06-22 09:00] VITALS: BP 129/84
--- NOTE | 2023-06-22 09:33 | NUR ---
NURSING PCU DAYSHIFT: Assumed care of pt at approx 0700. A/O, very pleasant, cooperative w/care. Denies any pain/discomfort at rest. Ambulates independently and w/o difficulty. Skin intact w/no breakdown noted. Tele in place, NSR w/occ PVC's, no c/o CP/pressure, SBP 120's prior to a.m. meds, trace BLE edema. L/S cta t/o, O2 sat upper 90's on RA, mild dyspnea w/exertion though improved from previous day per pt, no noted cough, snoring and short periods of apnea noted while asleep. Abd distended and firm which pt states is normal, BT+, voiding w/o difficulty. PIV x1, s/l. No s/s of acute distress this a.m. Pt states improved since admit. Currently sitting up in bed having breakfast while talking w/family on phone. Denies any current needs or questions regarding plan of care. Call light in reach, cont to monitor for any changes.
[2023-06-22 11:10] VITALS: BP 112/75
[2023-06-22] MEDS ORDERED: SPIR25 PO (13:00)
[2023-06-22] MEDS ORDERED: BUMETANIDE2 M6 PO (13:12)
--- NOTE | 2023-06-22 14:11 | NUR ---
NURSING PCU DISCHARGE SUMMARY: Pt did well t/o the a.m. Seen by PMD, discharge home d/o received. Pt and s/o verbalized understanding of all written and verbal discharge instructions. PIV dc'd w/cath intact, Rx's faxed to [facility] per pt request. Pt escorted from unit via w/c accompanied by s/o and CERAMICS TECHNICIAN. No s/s of acute distress at time of discharge.
== END 2023-06-22 13:45 | disposition home or self-care (01) ==
LOC: ER 12:05 → PCU 12:06
PROVIDERS: Physician Assistant; Student in an Organized Health Care Education/Training Program; ADMIT Internal Medicine
DX: I25.119 Atherosclerotic heart disease of native coronary artery with unspecified angina pectoris (principal); I50.43 Acute on chronic combined systolic (congestive) and diastolic (congestive) heart failure; N18.30 Chronic kidney disease, stage 3 unspecified; I13.0 Hypertensive heart and chronic kidney disease with heart failure and stage 1 through stage 4 chronic kidney disease, or unspecified chronic kidney disease; E78.5 Hyperlipidemia, unspecified; Z86.73 Personal history of transient ischemic attack (TIA), and cerebral infarction without residual deficits; K21.9 Gastro-esophageal reflux disease without esophagitis; Z88.1 Allergy status to other antibiotic agents
CPT/HCPCS: 36415; 71046; 80048; 80053; 83880; 84484; 85025; 85049; 93005; 93010; 94762; 96372; 96374; 96375; 96376; 99285-25; A9270; G0378; J1644; J2270

== ENCOUNTER 2023-06-29 02:16 | Emergency (ER) | payer BC ==
[~2023-06-29] VITALS: Ht 167.6 cm; Wt 83.9 kg
[~2023-06-29 02:16] MED LIST changes: +BUMETANIDE2 M6 PO; +SPIR25 PO
[2023-06-29 02:58] LABS: BASOPHILS ABSOLUTE AUTO 0.06 K/mm3 (0.00-0.23); BASOPHILS PERCENT AUTO 1 % (0-2); EOSINOPHILS ABSOLUTE AUTO 0.13 K/mm3 (0.00-0.68); EOSINOPHILS PERCENT AUTO 2 % (0-6); Hematocrit 43.4 % (37.0-53.0); Hemoglobin 14.6 g/dL (13.5-17.5); IMMATURE GRAN ABSOLUTE AUTO 0.04 K/mm3 (0.00-0.10); IMMATURE GRAN PERCENT AUTO 1 % (0-1); LYMPHOCYTES ABSOLUTE AUTO 1.78 K/mm3 (0.84-5.20); LYMPHOCYTES PERCENT AUTO 29 % (21-46); MONOCYTES ABSOLUTE AUTO 0.75 K/mm3 (0.16-1.47); MONOCYTES PERCENT AUTO 12 % (4-13); Mean Corpuscular HGB 31.8 pg (26.0-34.0); Mean Corpuscular HGB Conc 33.6 g/dL (31.5-36.5); Mean Corpuscular Volume 95 fL (80-100); Mean Platelet Volume 10.4 fL (9.1-12.4); NEUTROPHILS ABSOLUTE AUTO 3.31 K/mm3 (1.96-9.15); NEUTROPHILS PERCENT AUTO 55 % (41-73); Platelet Count 170 K/mm3 (150-400); RDW Coefficient Variation 13.4 % (11.7-14.2); RDW Standard Deviation 46.5 fL (35.1-46.3); Red Blood Cell Count 4.59 M/mm3 (4.30-5.90); White Blood Cell Count 6.07 K/mm3 (4.00-11.30)
[2023-06-29 03:28] LABS: D-Dimer, Quantitative 0.38 mg/L FEU (0.00-0.52); International Normalized Ratio 1.02; Prothrombin Time Results 10.7 Sec (9.7-11.5)
[2023-06-29 03:45] LABS: Magnesium, Blood 2.1 mg/dL (1.6-2.4)
[2023-06-29 04:32] LABS: Aspartate Aminotrans (AST/SGOT 55 U/L (12-37); Bilirubin, Direct <0.1 mg/dL (0.0-0.3); Bilirubin, Indirect Unable to Calculate mg/dL (0.1-0.7); Blood Urea Nitrogen 35 mg/dL (8-24); Chloride, Blood 106 mmol/L (98-108); Glucose, Blood 113 mg/dL (70-99); Potassium, Blood 4.1 mmol/L (3.5-5.5); Sodium, Blood 138 mmol/L (136-145)
[2023-06-29 04:33] LABS: Calcium, Blood 8.9 mg/dL (8.5-10.1); Creatinine, Blood 1.06 mg/dL (0.60-1.20); Glomerular Filtration Rate 80 (60-)
[2023-06-29 04:34] LABS: Alanine Aminotransfer (ALT/SGP 41 U/L (12-78); Albumin/Globulin Ratio 0.7 (0.8-1.8); Anion Gap 5 mmol/L (6-16); Bilirubin, Total 0.3 mg/dL (0.1-1.0); CO2, Blood 27 mmol/L (21-32)
[2023-06-29 04:36] LABS: Albumin, Blood 3.4 g/dL (3.4-5.0); Alk Phos 93 U/L (50-136); Globulin, Blood 4.6 g/dL (2.2-4.0)
[2023-06-29 11:30] VITALS: BP 143/125
[2023-06-29] MEDS ORDERED: RANEXA1000 M4 PO (11:31)
== END 2023-06-29 11:51 | disposition home or self-care (01) ==
LOC: ER 02:16
PROVIDERS: Emergency Medicine
DX: I25.110 Atherosclerotic heart disease of native coronary artery with unstable angina pectoris (principal); I11.0 Hypertensive heart disease with heart failure; I50.1 Left ventricular failure, unspecified; Z79.02 Long term (current) use of antithrombotics/antiplatelets; Z79.82 Long term (current) use of aspirin; Z79.899 Other long term (current) drug therapy; Z88.8 Allergy status to other drugs, medicaments and biological substances
CPT/HCPCS: 71045; 80053; 82248; 83735; 83880; 84484; 85025; 85379; 85610; 85730; 93005; 93010; 96374; 96375; 99285-25; A9270; J2270; J2405

== ENCOUNTER 2023-07-15 22:59 | Emergency (ER) | payer BC ==
[~2023-07-15] VITALS: Ht 177.8 cm; Wt 99.8 kg
[~2023-07-15 22:59] MED LIST changes: +RANEXA1000 M4 PO
[2023-07-15 23:32] VITALS: BP 156/114
== END 2023-07-15 23:42 | disposition home or self-care (01) ==
LOC: ER 22:59
DX: S46.912A Strain of unspecified muscle, fascia and tendon at shoulder and upper arm level, left arm, initial encounter (principal); X50.0XXA Overexertion from strenuous movement or load, initial encounter; Z88.1 Allergy status to other antibiotic agents; Z79.82 Long term (current) use of aspirin; Z79.02 Long term (current) use of antithrombotics/antiplatelets; Z79.899 Other long term (current) drug therapy; Z86.73 Personal history of transient ischemic attack (TIA), and cerebral infarction without residual deficits; Z87.442 Personal history of urinary calculi; Z86.14 Personal history of Methicillin resistant Staphylococcus aureus infection; Z86.19 Personal history of other infectious and parasitic diseases; I11.0 Hypertensive heart disease with heart failure
CPT/HCPCS: 99283; A9270

== ENCOUNTER 2023-07-31 15:18 | Observation (INO) | payer BC ==
[~2023-07-31] VITALS: Ht 167.6 cm; Wt 81.2 kg
[~2023-07-31 15:18] MED LIST changes: +FLUT1DIS8 INH; +FURO40 PO; +NICO21TP TOP; +TICA90TA PO
[2023-07-31] MEDS ORDERED: CATAPRES0.1 MG PO (15:46)
[2023-07-31 15:47] LABS: BASOPHILS ABSOLUTE AUTO 0.05 K/mm3 (0.00-0.23); BASOPHILS PERCENT AUTO 1 % (0-2); EOSINOPHILS PERCENT AUTO 1 % (0-6); Hemoglobin 14.6 g/dL (13.5-17.5); IMMATURE GRAN PERCENT AUTO 1 % (0-1); LYMPHOCYTES ABSOLUTE AUTO 1.36 K/mm3 (0.84-5.20); LYMPHOCYTES PERCENT AUTO 15 % (21-46); MONOCYTES ABSOLUTE AUTO 0.98 K/mm3 (0.16-1.47); MONOCYTES PERCENT AUTO 11 % (4-13); Mean Corpuscular HGB 31.5 pg (26.0-34.0); Mean Corpuscular Volume 93 fL (80-100); Mean Platelet Volume 10.3 fL (9.1-12.4); NEUTROPHILS ABSOLUTE AUTO 6.64 K/mm3 (1.96-9.15); NEUTROPHILS PERCENT AUTO 72 % (41-73); Platelet Count 334 K/mm3 (150-400); RDW Coefficient Variation 13.6 % (11.7-14.2); RDW Standard Deviation 45.8 fL (35.1-46.3); Red Blood Cell Count 4.63 M/mm3 (4.30-5.90); White Blood Cell Count 9.23 K/mm3 (4.00-11.30)
[2023-07-31 16:07] LABS: Albumin, Blood 3.4 g/dL (3.4-5.0); Albumin/Globulin Ratio 0.7 (0.8-1.8); Bilirubin, Total 0.5 mg/dL (0.1-1.0); Bun/Creatinine Ratio 17.2 (12.0-20.0); Calcium, Blood 9.7 mg/dL (8.5-10.1); Creatinine, Blood 1.63 mg/dL (0.60-1.20); Globulin, Blood 5.1 g/dL (2.2-4.0); Potassium, Blood 3.8 mmol/L (3.5-5.5); Prothrombin Time Results 10.5 Sec (9.7-11.5); Total Protein, Blood 8.5 g/dL (6.4-8.2)
[2023-07-31 18:21] LABS: PCO2 Venous 49.7 mmHg (38-42); pH Blood Venous 7.36 (7.34-7.37)
[2023-07-31 18:22] LABS: Base Excess Venous 2.4 mmol/L; Bicarbonate Venous 24.9 mmol/L (24.0-30.0)
[2023-07-31 19:15] VITALS: BP 130/95
[2023-07-31] MEDS ORDERED: POTA10T PO (19:24)
[2023-07-31] MEDS ORDERED: MAGNESIUM OXID500 MG PO (19:24)
--- NOTE | 2023-07-31 20:25 | NUR ---
ADMIT NOTE PT ARRIVED TO PCU FROM ED VIA ED STRETCHER AT APPROX 1900. PT AMBULATED INDEPENDENTLY FROM ED STRETCHER TO PCU BED. PT A&OX4. SP02>90% ON RA. PT STATES HE HAS BEEN TOLD HE NEEDS TO WEAR CPAP AT NIGHT BUT DOESNT. CONTINUOUS PULSE OX APPLIED TO MONITOR. TELEMETRY SHOWS NSR, HR 70'S-80'S. VSS. PT DENIES CP/PRESSURE AT THIS TIME BUT DESCRIBES HOW IT FELT WHEN HE CALLED EMS. PER REPORT, ER SPOKE TO DR ALVAREZ FOR CONSULT. WILL PLACE PT NPO AT MIDNIGHT. PT ARRIVED W/ HEP GTT INFUSING PER EMAR, VERIFIED W/ [facility]ASSAN[facility]A CONSULTANT. NS STARTED INFUSING PER EMAR D/T CREATININE ELEVATION. EDUCATED PT ON IF HE STARTS TO FEEL SOB D/T HX OF CHF TO NOTIFY. WILL MONITOR CLOSELY. PT GIVEN URINAL, INSTRUCTED NEEDS UA, UNABLE TO GET IN ER. PT ORIENTED TO ROOM CALL LIGHT. CONSENTS DONE. SPOKE TO GIRLFRIEND PT FACETIMED ONCE HE ARRIVED TO ROOM. LAB IN ROOM TO DRAW. PT GIVEN SNACKS. CALL LIGHT IN REACH.
[2023-07-31 23:31] VITALS: BP 127/91
[2023-08-01] VITALS (9 sets, daily range): BP systolic 117–179; BP diastolic 88–156
[2023-08-01 03:57] LABS: Source, Urine Clean Catch
[2023-08-01 03:59] LABS: Bilirubin, Urine Neg (Neg); Blood, Urine Neg (Neg); Glucose Qualitative, Urine Neg (Neg); Ketones, Urine Neg (Neg); Leukocyte Esterase, Urine Neg (Neg); Nitrite, Urine Neg (Neg); Protein, Urine 1+ (Neg); Urobilinogen, Urine NORM (Normal)
[2023-08-01 04:23] LABS: Appearance, Urine Clear (Clear); Color, Urine Yellow (P-Yellow)
[2023-08-01 04:34] LABS: Calcium, Blood 8.9 mg/dL (8.5-10.1); Creatinine, Blood 1.4 mg/dL (0.60-1.20); Potassium, Blood 3.6 mmol/L (3.5-5.5)
--- NOTE | 2023-08-01 05:28 | NUR ---
shift summary no acute changes since care assumption. Pt slept most of night, repositioned self. Used urinal at bedside. Denied cp since admit onto PCU. Girlfriend just arrived in room. Call light in reach.
--- NOTE | 2023-08-01 11:14 | NUR ---
am note this rn assumed care at 0700. vital signs stable. tele sr 70s. patient denies chest pain/pressure, shortness of breath or pain when assuming care. patient is alert and oriented x4 perrla. patient is able to make needs known and uses call light appropriately. see shift assessment for further detials. patient had angio this morning, and it was clear. right radial site is soft nontender and no hematoma. plan is up to date at this time.
[2023-08-01] MEDS ORDERED: JARDIANCE10 MG PO (12:42)
[2023-08-01] MEDS ORDERED: ALDACTONE25 MG PO (12:42)
[2023-08-01] MEDS ORDERED: METO25ER PO (12:43)
--- NOTE | 2023-08-01 14:43 | NUR ---
discharge this rn and student rn provided discharge education, medication education and follow up appointments. patient left with all belongings and in no distress. patient right radial site is fully recovered before patient left. patient vitals stable.
== END 2023-08-01 14:21 | disposition home or self-care (01) ==
LOC: ER 15:18 → PCU 15:19
PROVIDERS: Emergency Medicine; Nurse Practitioner Acute Care; ADMIT Internal Medicine
DX: R07.9 Chest pain, unspecified (principal); I25.10 Atherosclerotic heart disease of native coronary artery without angina pectoris; Z95.5 Presence of coronary angioplasty implant and graft; Z86.73 Personal history of transient ischemic attack (TIA), and cerebral infarction without residual deficits; N17.9 Acute kidney failure, unspecified; I50.22 Chronic systolic (congestive) heart failure; I11.0 Hypertensive heart disease with heart failure; K21.9 Gastro-esophageal reflux disease without esophagitis; Z72.0 Tobacco use
CPT/HCPCS: 36415; 71046; 76937; 80048; 80053; 82550; 82803; 84484; 85025; 85520; 85610; 85730; 93005; 93010; 93454; 94640; 94664; 94760; 96374; 99152; 99285-25; A9270; C1769; C1887; C1894; G0378; J1644; J2250; J3010; J7030; J7050; Q9967

== ENCOUNTER 2023-08-28 17:10 | Emergency (ER) | payer BC ==
[~2023-08-28] VITALS: Ht 167.6 cm; Wt 78.5 kg
[~2023-08-28 17:10] MED LIST changes: +ALDACTONE25 MG PO; +CATAPRES0.1 MG PO; +JARDIANCE10 MG PO; +MAGNESIUM OXID500 MG PO; +POTA10T PO
[2023-08-28 17:50] VITALS: BP 141/97
[2023-08-28 18:15] LABS: BASOPHILS ABSOLUTE AUTO 0.03 K/mm3 (0.00-0.23); BASOPHILS PERCENT AUTO 0 % (0-2); EOSINOPHILS PERCENT AUTO 0 % (0-6); Hematocrit 44.9 % (37.0-53.0); IMMATURE GRAN ABSOLUTE AUTO 0.04 K/mm3 (0.00-0.10); IMMATURE GRAN PERCENT AUTO 0 % (0-1); LYMPHOCYTES ABSOLUTE AUTO 1.02 K/mm3 (0.84-5.20); LYMPHOCYTES PERCENT AUTO 10 % (21-46); MONOCYTES ABSOLUTE AUTO 0.71 K/mm3 (0.16-1.47); MONOCYTES PERCENT AUTO 7 % (4-13); Mean Corpuscular HGB 31.4 pg (26.0-34.0); Mean Corpuscular HGB Conc 33.4 g/dL (31.5-36.5); Mean Corpuscular Volume 94 fL (80-100); Mean Platelet Volume 10.7 fL (9.1-12.4); NEUTROPHILS ABSOLUTE AUTO 8.53 K/mm3 (1.96-9.15); NEUTROPHILS PERCENT AUTO 83 % (41-73); Platelet Count 282 K/mm3 (150-400); RDW Coefficient Variation 13.6 % (11.7-14.2); RDW Standard Deviation 47.2 fL (35.1-46.3); Red Blood Cell Count 4.78 M/mm3 (4.30-5.90); White Blood Cell Count 10.33 K/mm3 (4.00-11.30)
[2023-08-28 18:42] LABS: Albumin, Blood 4.1 g/dL (3.4-5.0); Albumin/Globulin Ratio 0.9 (0.8-1.8); Bun/Creatinine Ratio 22.7 (12.0-20.0); Calcium, Blood 9.5 mg/dL (8.5-10.1); Creatinine, Blood 1.94 mg/dL (0.60-1.20); Globulin, Blood 4.5 g/dL (2.2-4.0); Potassium, Blood 4.7 mmol/L (3.5-5.5); Total Protein, Blood 8.6 g/dL (6.4-8.2)
== END 2023-08-28 20:00 | disposition left against medical advice (07) ==
LOC: ER 17:10
PROVIDERS: Student in an Organized Health Care Education/Training Program
DX: K92.1 Melena (principal); Z53.29 Procedure and treatment not carried out because of patient's decision for other reasons; R11.2 Nausea with vomiting, unspecified; R10.9 Unspecified abdominal pain; Z79.82 Long term (current) use of aspirin; Z79.02 Long term (current) use of antithrombotics/antiplatelets; Z79.899 Other long term (current) drug therapy; Z79.84 Long term (current) use of oral hypoglycemic drugs
CPT/HCPCS: 80053; 83690; 85025; 93005; 93010; 99281